=== PATIENT | female | born 1980 | race American Indian/Alaskan Native ===

== ENCOUNTER 2016-12-23 23:26 | Emergency (ER) | payer MEDICAID ==
[2016-12-24 01:27] LABS: Basophils % (Auto) 0.3 % (0.0-1.8); Eosinophils % (Auto) 1.5 % (0.0-4.3); Hematocrit 37.7 % (30.3-42.9); Hemoglobin 12.5 gm/dl (10.1-14.3); Mean Corpuscular HGB Conc 33 % (30-34); Mean Corpuscular Hemoglobin 28 pg (28-32); Mean Corpuscular Volume 83 fl (79-97); Platelet Count 261 K/mm3 (140-440); Red Blood Count 4.55 M/mm3 (3.65-5.03); Red Cell Distribution Width 16.4 % (13.2-15.2); White Blood Count 10.4 K/mm3 (4.5-11.0)
--- NOTE | 2016-12-24 01:57 | Ultrasound Report ---
FINAL REPORT PROCEDURE: US OB \T\gt; = 14 WEEKS FETUS TECHNIQUE: Real-time limited sonographic examination was performed for evaluation of size, position, heartbeat, fluid volume for each fetus with image documentation (1 or more fetuses). CPT 23677 HISTORY: 16 weeks with vag bleeding COMPARISON: No prior studies are available for comparison. FINDINGS: MATERNAL Uterus: Within normal limits . Cervix length: 3.5 cm. Internal Os: Closed . FETUS IUP: Single living intrauterine . Position: Breech. Placental position: Posterior, without previa . Amniotic fluid volume: Normal . Heart rate and rhythm: 156 BPM, Regular . anatomic survey: Normal . MEASUREMENTS BPD: 3.4 centimeter. HC: 12.6 centimeter. AC: 10.7 centimeter. FL: 2.1 centimeter. Mean Gestational Age (composite criteria): 16 weeks 3 days. Ratio biometry: Normal . Estimated Weight: 158 grams. Interval growth: Appropriate . Estimated Due Date (earliest scan): 06/06/2017. IMPRESSION: 1. Single living intrauterine gestation at approximately 16 weeks 3 days. 2. EDC by US 06/06/2017.
[2016-12-24 02:19] LABS: Bilirubin,Urine NEG (Negative); Blood,Urine LG (Negative); Ketones,Urine NEG (Negative); Leukocyte Esterase,Urine SM (Negative); Mucus,Urine FEW /HPF; Nitrite,Urine NEG (Negative); Protein,Urine <15 mg/dL mg/dL (Negative); Urobilinogen,Urine < 2.0 mg/dL (<2.0)
[2016-12-24 02:39] LABS: RBC,Urine > 182.0 /HPF (0.0-6.0)
[2016-12-24 03:18] VITALS: BP 120/69
--- NOTE | 2016-12-24 03:20 | Emergency Department Report ---
ED General Adult HPI - General Chief complaint: Vaginal Bleeding Stated complaint: VAGINAL BLEEDING Time Seen by Provider: 12/24/16 03:18 Source: patient Mode of arrival: Ambulatory Limitations: No Limitations - History of Present Illness Initial comments: This is a 36-year-old female. She is previously unknown to me. She is 3, para 1. Last miss appears August 31. Her [facility]ERAPIST doctor is Dr. [place]. Patient presents to the ER with resolved vaginal bleeding. The patient reports recent vigorous sexual intercourse prior to arrival. Bleeding has since stopped. There is no headache, neck pain, chest pain, abdominal pain or shortness of breath. Denies irritative and obstructive urinary symptoms. -: Gradual Consistency: now resolved Improves with: none Worsens with: none Associated Symptoms: denies other symptoms - Related Data Allergies Allergy/AdvReac Type Severity Reaction Status Date / Time No Known Allergies Allergy Unverified 12/24/16 01:07 ED Review of Systems ROS: Stated complaint: VAGINAL BLEEDING Other details as noted in HPI Constitutional: denies: malaise Eyes: denies: vision change ENT: denies: epistaxis Respiratory: denies: cough Cardiovascular: denies: chest pain Gastrointestinal: denies: abdominal pain Genitourinary: abnormal menses. denies: dysuria Musculoskeletal: denies: back pain Skin: denies: lesions Neurological: denies: weakness ED Past Medical Hx - Past Medical History Previous Medical History?: No - Surgical History Additional Surgical History: cystectomy, rt ovaries - Social History Smoking Status: Never Smoker Substance Use Type: None ED Physical Exam - General Limitations: No Limitations General appearance: alert, in no apparent distress - Head Head exam: Present: atraumatic, normocephalic - Eye Eye exam: Present: normal appearance, EOMI. Absent: nystagmus - ENT ENT exam: Present: normal exam, normal orophraynx, mucous membranes moist, normal external ear exam - Neck Neck exam: Present: normal inspection, full ROM. Absent: tenderness, meningismus - Respiratory Respiratory exam: Present: normal lung sounds bilaterally. Absent: respiratory distress, wheezes, rales, rhonchi, stridor, decreased breath sounds - Cardiovascular Cardiovascular Exam: Present: regular rate, normal rhythm, normal heart sounds. Absent: bradycardia, tachycardia, irregular rhythm, systolic murmur, diastolic murmur, rubs, gallop - GI/Abdominal GI/Abdominal exam: Present: soft, normal bowel sounds. Absent: distended, tenderness, guarding, rebound, rigid, pulsatile mass - External exam: Present: normal external exam Speculum exam: Present: normal speculum exam, laceration (small 1 cm laceration at 10 o clock. during food order expediter exam I am escorted by TIFFANIE patel) Bi-manual exam: Present: normal bi-manual exam. Absent: cervical motion tendernes, adnexal tenderness, adnexal mass - Extremities Exam Extremities exam: Present: normal inspection, full ROM, normal capillary refill. Absent: tenderness, pedal edema, joint swelling, calf tenderness - Back Exam Back exam: Present: normal inspection, full ROM. Absent: tenderness, CVA tenderness (R), CVA tenderness (L), muscle spasm, paraspinal tenderness, vertebral tenderness - Neurological Exam Neurological exam: Present: alert, oriented X3, normal gait, other (Extraocular movements intact. Tongue midline. No facial droop. Facial sensation intact to light touch in the V1, V2, V3 distribution bilaterally. 5 and 5 strength in 4 extremities.. Sensation is intact to light touch in 4 extremities.). Absent : motor sensory deficit - Psychiatric Psychiatric exam: Present: normal affect, normal mood - Skin Skin exam: Present: warm, dry, intact, normal color. Absent: rash ED Course Vital Signs 12/24/16 12/24/16 01:03 03:18 Temperature 98.2 F Pulse Rate 78 88 Respiratory 18 16 Rate Blood Pressure 119/85 Blood Pressure 120/69 [Right] O2 Sat by Pulse 100 100 Oximetry - Reevaluation(s) Reevaluation #1: 12/24/16 04:13 Differential diagnosis: Vaginal laceration, placenta previa, placental abruption , miscarriage Assessment and plan: 36-year-old female with very small vaginal laceration at 10 :00 after vigorous sexual intercourse. Her laboratory studies and physical exam are otherwise unremarkable, transabdominal ultrasound and stretch appropriate intrauterine . She is afebrile with reassuring vital signs. The patient declines to have the laceration repaired, she prefers to have it heal on its own. She is instructed to avoid vigorous sexual intercourse. She will be discharged at this time. Return precautions are reviewed. ED Medical Decision Making - Lab Data Result diagrams: 12/24/16 01:12 Vital Signs 12/24/16 12/24/16 01:03 03:18 Temperature 98.2 F Pulse Rate 78 88 Respiratory 18 16 Rate Blood Pressure 119/85 Blood Pressure 120/69 [Right] O2 Sat by Pulse 100 100 Oximetry Lab Results 12/24/16 12/24/16 12/24/16 Range/Units 01:12 01:12 01:12 WBC 10.4 (4.5-11.0) K/mm3 RBC 4.55 (3.65-5.03) M/mm3 Hgb 12.5 (10.1-14.3) gm/dl Hct 37.7 (30.3-42.9) % MCV 83 (79-97) fl MCH 28 (28-32) pg MCHC 33 (30-34) % RDW 16.4 H (13.2-15.2) % Plt Count 261 (140-440) K/mm3 Lymph % (Auto) 25.3 (13.4-35.0) % [place] % (Auto) 5.8 (0.0-7.3) % Eos % (Auto) 1.5 (0.0-4.3) % Baso % (Auto) 0.3 (0.0-1.8) % Lymph # 2.6 (1.2-5.4) K/mm3 [place] # 0.6 (0.0-0.8) K/mm3 Eos # 0.2 (0.0-0.4) K/mm3 Baso # 0.0 (0.0-0.1) K/mm3 Seg Neutrophils % 67.1 (40.0-70.0) % Seg Neutrophils # 7.0 (1.8-7.7) K/mm3 HCG, Quant 45911 H (0-4) mIU/mL Urine Color (Yellow) Urine Turbidity (Clear) Urine pH (5.0-7.0) Ur Specific [place] (1.003-1.030) Urine Protein (Negative) mg/dL Urine Glucose (UA) (Negative) mg/dL Urine Ketones (Negative) mg/dL Urine Blood (Negative) Urine Nitrite (Negative) Urine Bilirubin (Negative) Urine Urobilinogen (<2.0) mg/dL Ur Leukocyte Esterase (Negative) Urine WBC (Auto) (0.0-6.0) /HPF Urine RBC (Auto) (0.0-6.0) /HPF U Epithel Cells (Auto) (0-13.0) /HPF Urine Mucus /HPF Blood Type B POSITIVE Ord Rhogam Gestat Weeks Rh pos WEEKS 12/24/16 Range/Units 01:45 WBC (4.5-11.0) K/mm3 RBC (3.65-5.03) M/mm3 Hgb (10.1-14.3) gm/dl Hct (30.3-42.9) % MCV (79-97) fl MCH (28-32) pg MCHC (30-34) % RDW (13.2-15.2) % Plt Count (140-440) K/mm3 Lymph % (Auto) (13.4-35.0) % [place] % (Auto) (0.0-7.3) % Eos % (Auto) (0.0-4.3) % Baso % (Auto) (0.0-1.8) % Lymph # (1.2-5.4) K/mm3 [place] # (0.0-0.8) K/mm3 Eos # (0.0-0.4) K/mm3 Baso # (0.0-0.1) K/mm3 Seg Neutrophils % (40.0-70.0) % Seg Neutrophils # (1.8-7.7) K/mm3 HCG, Quant (0-4) mIU/mL Urine Color Yellow (Yellow) Urine Turbidity Clear (Clear) Urine pH 5.0 (5.0-7.0) Ur Specific [place] 1.021 (1.003-1.030) Urine Protein <15 mg/dl (Negative) mg/dL Urine Glucose (UA) Neg (Negative) mg/dL Urine Ketones Neg (Negative) mg/dL Urine Blood Lg (Negative) Urine Nitrite Neg (Negative) Urine Bilirubin Neg (Negative) Urine Urobilinogen < 2.0 (<2.0) mg/dL Ur Leukocyte Esterase Sm (Negative) Urine WBC (Auto) 7.0 H (0.0-6.0) /HPF Urine RBC (Auto) > 182.0 (0.0-6.0) /HPF U Epithel Cells (Auto) 2.0 (0-13.0) /HPF Urine Mucus Few /HPF Blood Type Ord Rhogam Gestat Weeks WEEKS - Radiology Data Radiology results: report reviewed, image reviewed Obstetrics ultrasound demonstrated single living intrauterine gestation at 16 weeks and 3 days Critical care attestation.: If time is entered above; I have spent that time in minutes in the direct care of this critically ill patient, excluding procedure time. ED Disposition Clinical Impression: , Vaginal bleeding Disposition: DISCHARGED TO HOME OR SELFCARE Is pt being admited?: No Does the pt Need Aspirin: No Condition: Stable Instructions: (ED), Laceration (ED) Additional Instructions: continue current outpatient medications. Rest and avoid heavy lifting. Avoid strenuous physical activity. Follow-up with the gynecology doctor within the next week. Do not resume sexual activity until your gynecology doctor clears you to do so. Return to the ER right away with new pain, worsened pain, migration of pain, bleeding more than 2 pads soaked per hour, dizziness, lightheadedness, chest pain or shortness of breath. Keep the affected area dry, wash at least once a day. Avoid insertion of foreign objects. Referrals: LUCIUS FRANCE MD [Primary Care Provider] - 3-5 Days
== END 2016-12-24 04:10 | disposition home or self-care (01) ==
LOC: ED 23:26
DX: O46.92 Antepartum hemorrhage, unspecified, second trimester (principal); Z3A.16 16 weeks gestation of pregnancy
CPT/HCPCS: 36415; 76805; 81001; 84702; 85025; 86900; 86901

== ENCOUNTER 2021-10-13 16:14 | Emergency (ER) | payer MEDICAID, OTHER ==
[2021-10-13 19:58] VITALS: BP 149/94
--- NOTE | 2021-10-14 | Emergency Department Report ---
ED General Adult HPI - General Chief complaint: Urogenital-Female Stated complaint: DISCHARGE BREAST/CHEST PAIN/HEADACHE Time Seen by Provider: 10/13/21 21:44 Source: patient Mode of arrival: Ambulatory Limitations: No Limitations - History of Present Illness Initial comments: 41-year-old [place] female treatment problem complaining tenderness to her r ight breast with occasional serous bloody nipple discharge left occurring a few days ago but in the last couple weeks reports having about 3 episodes. Reports no trauma, no fever, chills, sweats. No shortness of breath, no abdominal pain does have a pain in the breast area radiates through to her back and is not currently breast-feeding states she stopped that about 5 months ago Quality: aching, dull Consistency: constant Improves with: none Worsens with: none - Related Data Previous Rx's Medication Instructions Recorded Last Taken Type Dicloxacillin Sodium 500 mg PO Q6H #40 cap 10/13/21 Unknown Rx Ketorolac [Toradol] 10 mg PO Q6H PRN #15 tablet 10/13/21 Unknown Rx Allergies Allergy/AdvReac Type Severity Reaction Status Date / Time No Known Allergies Allergy Unverified 12/24/16 01:07 ED Review of Systems ROS: Stated complaint: DISCHARGE BREAST/CHEST PAIN/HEADACHE Other details as noted in HPI Comment: All other systems reviewed and negative ED Past Medical Hx - Past Medical History Previous Medical History?: No - Surgical History Past Surgical History?: Yes Additional Surgical History: cystectomy, rt ovaries - Social History Smoking Status: Never Smoker Substance Use Type: None - Medications Home Medications: Home Medications Medication Instructions Recorded Confirmed Last Taken Type Dicloxacillin Sodium 500 mg PO Q6H #40 cap 10/13/21 Unknown Rx Ketorolac [Toradol] 10 mg PO Q6H PRN #15 tablet 10/13/21 Unknown Rx ED Physical Exam - General Limitations: No Limitations General appearance: alert, in no apparent distress - Head Head exam: Present: atraumatic, normocephalic - Eye Eye exam: Present: normal appearance, PERRL, EOMI Pupils: Present: normal accommodation - ENT ENT exam: Present: normal exam, normal orophraynx, mucous membranes moist, TM's normal bilaterally - Neck Neck exam: Present: normal inspection, full ROM - Respiratory Respiratory exam: Present: normal lung sounds bilaterally, chest wall tenderness (Tenderness to the right breast with palpation. No lymphadenopathy is appreciated. No masses to the tail of [place] to the epitrochlear nodes or the axillary region. Minimal redness. No wound discharge with expression). Absent: respiratory distress, wheezes, rales - Cardiovascular Cardiovascular Exam: Present: regular rate, normal rhythm. Absent: systolic murmur, diastolic murmur, rubs, gallop - GI/Abdominal GI/Abdominal exam: Present: soft, normal bowel sounds - Extremities Exam Extremities exam: Present: normal inspection, full ROM, normal capillary refill - Back Exam Back exam: Present: normal inspection. Absent: CVA tenderness (R), CVA tenderness (L) - Neurological Exam Neurological exam: Present: alert, oriented X3, CN II-XII intact, normal gait - Psychiatric Psychiatric exam: Present: normal affect, normal mood. Absent: flat affect, manic, suicidal ideation - Skin Skin exam: Present: warm, dry, intact, normal color. Absent: rash ED Course Vital Signs 10/13/21 19:54 Temperature 98.2 F Pulse Rate 70 Respiratory 18 Rate Blood Pressure 149/94 O2 Sat by Pulse 100 Oximetry Critical care attestation.: If time is entered above; I have spent that time in minutes in the direct care of this critically ill patient, excluding procedure time. ED Disposition Clinical Impression: Breast pain, right Disposition: 01 HOME / SELF CARE / HOMELESS Is pt being admited?: No Does the pt Need Aspirin: No Condition: Stable Instructions: Nonspecific Chest Pain, Adult Prescriptions: Dicloxacillin Sodium 500 mg PO Q6H #40 cap Ketorolac [Toradol] 10 mg PO Q6H PRN #15 tablet PRN Reason: Pain Referrals: EVERARDO ANSARI MD [Primary Care Provider] - 3-5 Days
== END 2021-10-13 23:00 | disposition home or self-care (01) ==
LOC: ED 16:14
DX: N64.4 Mastodynia (principal); Z98.890 Other specified postprocedural states; Z79.899 Other long term (current) drug therapy
CPT/HCPCS: 99282